=== PATIENT | male | born 1930 | race Caucasian/White ===

== ENCOUNTER 2020-12-02 11:52 | Emergency (ER) | payer MEDICARE, OTHER ==
[~2020-12-02] VITALS: Ht 182.9 cm; Wt 90.7 kg
[~2020-12-02 11:52] MED LIST: PROSCAR5 MG; SIMVASTATIN40 MG
[2020-12-02 12:54] LABS: BASOPHILS # (AUTO) 0.1 (0.0-0.1); BASOPHILS % 0.5 % (0.0-1.0); EOSINOPHILS # (AUTO) 0.8 (0.0-0.4); EOSINOPHILS % 6.6 % (0.0-6.0); HEMATOCRIT 41.6 % (38.2-49.6); HEMOGLOBIN 13.9 g/dL (14.0-18.0); LYMPHOCYTES # (AUTO) 2.7 (1.0-3.2); LYMPHOCYTES % 22.2 % (18.0-39.1); MEAN CORPUSCULAR HEMOGLOBIN 30.5 pg (28-32); MEAN CORPUSCULAR HGB CONC 33.4 g/dL (31-35); MEAN CORPUSCULAR VOLUME 91.2 fL (81-99); MONOCYTES # (AUTO) 0.7 (0.2-0.8); MONOCYTES % 5.6 % (4.4-11.3); NEUTROPHILS # (AUTO) 7.7 (2.1-6.9); NEUTROPHILS % 64.1 % (38.7-80.0); PLATELET COUNT 184 x10e3/uL (140-360); RED BLOOD COUNT 4.56 x10e6/uL (4.3-5.7); RED CELL DISTRIBUTION WIDTH 13.8 % (11.7-14.4)
[2020-12-02 13:13] LABS: CREATINE KINASE MB 4.3 ng/mL (0-5.0)
[2020-12-02 13:17] LABS: ALBUMIN 4.2 g/dL (3.5-5.0); ALBUMIN/GLOBULIN RATIO 1.2 (0.8-2.0); ANION GAP 14.3 mmol/L (8-16); CALCIUM 9.5 mg/dL (8.4-10.2); CREATININE, SERUM 1.28 mg/dL (0.72-1.25); POTASSIUM 4.3 mmol/L (3.5-5.1)
[2020-12-02] MEDS ORDERED: MORPHINE SULFATE INJ 2 MG/ML SYR IV STA (16:58)
[2020-12-02] MEDS ORDERED: LIDOCAINE 1% 5ML-MPF INJ ONE (17:00)
[2020-12-02] MEDS ORDERED: LIDOCAINE 1% W/EPINEPHRINE 20 ML VIAL INJ ONE (18:30)
[2020-12-02] MEDS ORDERED: NEOSTIGMINE 1 MG/ML 10ML VIAL ONE (23:11)
[2020-12-03 00:07] VITALS: BP 160/90
== END 2020-12-02 23:25 | disposition home or self-care (01) ==
LOC: ER 12:18
DX: S01.322A Laceration with foreign body of left ear, initial encounter (principal); Y93.01 Activity, walking, marching and hiking; Y92.010 Kitchen of single-family (private) house as the place of occurrence of the external cause; I10 Essential (primary) hypertension; E11.9 Type 2 diabetes mellitus without complications; E78.5 Hyperlipidemia, unspecified; E78.00 Pure hypercholesterolemia, unspecified; Z88.0 Allergy status to penicillin; Z20.822 Contact with and (suspected) exposure to COVID-19; W01.198A Fall on same level from slipping, tripping and stumbling with subsequent striking against other object, initial encounter
CPT/HCPCS: 11010; 36415; 70450; 70486; 71045; 72125; 72170; 80053; 82550; 82553; 84484; 85025; 93005; 99284; J2270; J2710; U0002